=== PATIENT | male | born 1960 ===

== ENCOUNTER 2017-02-19 11:19 | Emergency (ER) | payer MEDICAID, OTHER ==
[2017-02-19 11:19] VITALS: BMI 26.4
[2017-02-19 11:27] VITALS: PULSE 84; TEMP 98.6; O2SAT 98
[2017-02-19] MEDS ORDERED: Sodium Chloride 0.9% 1,000 ML IV STA (11:58)
[2017-02-19 12:52] LABS: BASO % 0.6 % (0.0-2.0); EOS # 0.1 K/uL (0.0-0.7); HEMATOCRIT 48.4 % (35.0-51.0); LYMPH # 1.5 K/uL (1.0-4.3); LYMPH % 18.4 % (20.0-40.0); MEAN CORPUSCULAR HEMOGLOBIN 29.9 pg (27.0-31.0); MEAN CORPUSCULAR HGB CONC 33.2 g/dL (33.0-37.0); MEAN PLATELET VOLUME 9.1 fl (7.2-11.7); MONO # 0.8 K/uL (0.0-0.8); MONO % 9.3 % (0.0-10.0); NEUT # 5.7 K/uL (1.8-7.0); NEUT % 70.7 % (50.0-75.0); RED CELL DISTRIBUTION WIDTH 14.8 % (11.5-14.5); WHITE BLOOD COUNT 8.1 K/uL (4.8-10.8)
[2017-02-19 13:11] LABS: ALB/GLOB RATIO 1.6 (1.0-2.1); ALKALINE PHOSPHATASE 81 U/L (38-126); ALT/SGPT 183 U/L (21-72); AST/SGOT 81 U/L (17-59); BILIRUBIN,TOTAL 1.7 mg/dl (0.2-1.3); BLOOD UREA NITROGEN 14 mg/dl (9-20); CALCIUM 10.2 mg/dL (8.4-10.2); CARBON DIOXIDE 30 mmol/L (22-30); CHLORIDE 103 mmol/L (98-107); GFR AFRICAN-AMERICAN > 60; GLUCOSE,RANDOM 97 mg/dL (75-110); POTASSIUM 4.3 MMOL/L (3.6-5.0); SODIUM 144 mmol/l (132-148); TOTAL PROTEIN 7.7 G/DL (6.3-8.2)
[2017-02-19 13:18] LABS: RBC URINE 3 /hpf (0-3); URINE BILIRUBIN NEGATIVE (NEGATIVE); URINE BLOOD NEGATIVE (NEGATIVE); URINE COLOR YELLOW (YELLOW); URINE GLUCOSE (UA) NEG (Normal); URINE KETONE NEGATIVE (NEGATIVE); URINE LEUKOCYTE ESTERASE NEG Leu/uL (Negative); URINE PROTEIN NEGATIVE (NEGATIVE); URINE UROBILINOGEN 0.2-1.0 mg/dL (0.2-1.0); WBC URINE < 1 /hpf (0-5)
[2017-02-19 13:33] VITALS: BP 126/76; RESP 88
--- NOTE | 2017-02-19 15:17 | CT ---
PROCEDURE: CT abdomen pelvis dated 02/19/2017 HISTORY: Left flank pain. COMPARISON: None. TECHNIQUE: Contiguous axial images of the abdomen and pelvis performed without oral or intravenous contrast. Additional 2 dimensional sagittal and coronal reformats provided. Radiation dose: Total exam DLP = 1065.48 mGy-cm. This CT exam was performed using one or more of the following dose reduction techniques: Automated exposure control, adjustment of the mA and/or kV according to patient size, and/or use of iterative reconstruction technique. FINDINGS: LOWER THORAX: Lung bases clear. No infiltrate effusion or basilar pneumothorax. Heart size within range of normal. No significant pericardial effusion. Small hiatal hernia with wall thickening of the distal esophagus likely due to protrusion of gastric mucosa. Possibility of esophagitis not excluded. LIVER: Liver is mildly enlarged measuring nearly 22 cm in CC dimension. Mild diffuse fatty hepatic infiltration. No obvious hepatic mass or collection seen on this limited noncontrast study. GALLBLADDER AND BILE DUCTS: Gallbladder is physiologically distended. No evidence of intraluminal gallbladder calculi. The PANCREAS: The pancreas appears slightly atrophic and fatty replaced. No obvious pancreatic mass or collection seen on this noncontrast study. SPLEEN: There is a vague at septated appearing the focus of low attenuation posterior superior aspect of the splenic parenchyma measuring approximately 2.1 x 1.9 cm. Rule out complex cyst or hemangioma. Followup interval recommended to assess stability. ADRENALS: There are no adrenal lesions seen. KIDNEYS AND URETERS: The kidneys demonstrate symmetric size. No evidence of nephrolithiasis or hydronephrosis. Questionable tiny exophytic hyperdense focus along the lateral aspect lower pole left kidney. Followup renal ultrasound could be performed for further evaluation and confirmation BLADDER: Urinary bladder is incompletely distended which presumably accounts for thick-walled appearance. Muscular hypertrophy likely contributes. Rule out cystitis or other intrinsic/invasive wall lesion. REPRODUCTIVE: Prostate gland measures approximately 3.7 cm in transverse dimension. Multiple calcified pelvic phleboliths are present. APPENDIX: Normal-appearing partially debris and air filled appendix seen on axial image number [id number]. No periappendiceal inflammatory changes. The BOWEL: Evaluation of the bowel is somewhat limited due to the lack of oral contrast material. . Stomach is incompletely distended which presumably accounts for thick-walled appearance. Gastritis not excluded. Visualized loops of small bowel exhibit normal contour and caliber. No evidence of acute mechanical small bowel obstruction. Moderate amount of stool is seen throughout the colon suggesting mild constipation. There does appear to be a few scattered colonic diverticula along sigmoid colon. No definitive abnormal mural wall thickening. PERITONEUM: Unremarkable. No fluid collection. No free air. Small bilateral fat containing inguinal hernias. Small fat containing umbilical hernia. LYMPH NODES: No evidence of significant lymphadenopathy. VASCULATURE: No evidence of abdominal aortic aneurysm. BONES: Minor multilevel degenerative spondylosis of the lower thoracic and lumbar spine. There is mild levoscoliosis centered in the lower lumbar region. Remaining osseous structures appear grossly unremarkable. OTHER FINDINGS: None. IMPRESSION: Mild hepatomegaly. Mild fatty hepatic infiltration. Complex appearing cystic focus of posterior superior at on margin of the spleen. Rule out meningioma. Followup CT scan at interval could be performed to assess stability. No evidence of nephrolithiasis or hydronephrosis. Questionable small exophytic hyperdense cyst inferior lateral margin left kidney. Followup nonemergent ultrasound could be performed further evaluation. Bilateral small fat containing inguinal hernias and small fat containing umbilical hernia. Findings suggest mild constipation. There appear to be a few scattered colonic diverticula along the sigmoid colon however no definitive radiographic evidence of acute diverticulitis. No evidence of acute appendicitis.
--- NOTE | 2017-02-19 15:33 | ED PDOC ---
HPI: Back Time Seen by Provider: 02/19/17 11:44 Chief Complaint (Nursing): Back Pain Chief Complaint (Provider): Left flank pain x 3 days, no similar in the past, no trauma History Per: Patient History/Exam Limitations: no limitations Onset/Duration Of Symptoms: Days Current Symptoms Are (Timing): Still Present Quality Of Discomfort: Sharp Severity: Severe Pain Scale Rating Of: 9 Previous Symptoms: None Associated Symptoms: None Exacerbating Factor(s): Movement Past Medical History Reviewed: Historical Data, Nursing Documentation, Vital Signs Vital Signs: Last Vital Signs Temp 98.6 F 02/19/17 11:24 Pulse 84 02/19/17 11:24 Resp 88 H 02/19/17 13:33 BP 126/76 02/19/17 13:33 Pulse Ox 98 02/19/17 11:24 - Medical History PMH: - Surgical History Surgical History: No Surg Hx - Family History Family History: States: No Known Family Hx - Living Arrangements Living Arrangements: With Family - Social History Current smoker - smoking cessation education provided: No - Home Medications Home Medications: Ambulatory Orders Medication Instructions Recorded Naproxen 500 mg PO Q12H PRN #20 ect 02/19/17 diaZEpam [Valium] 5 mg PO Q6H PRN #15 tab 02/19/17 - Allergies Allergies/Adverse Reactions: Allergies Allergy/AdvReac Type Severity Reaction Status Date / Time No Known Allergies Allergy Verified 02/19/17 11:24 Review of Systems ROS Statement: Except As Marked, All Systems Reviewed And Found Negative Constitutional: Negative for: Fever, Chills Gastrointestinal: Positive for: Abdominal Pain (Left flank pain ). Negative for : Nausea, Vomiting Physical Exam - Reviewed Nursing Documentation Reviewed: Yes Vital Signs Reviewed: Yes - Physical Exam Appears: Positive for: Well, Non-toxic, No Acute Distress Head Exam: Positive for: ATRAUMATIC, NORMAL INSPECTION, NORMOCEPHALIC Skin: Positive for: Normal Color, Warm, DRY Eye Exam: Positive for: Normal appearance ENT: Positive for: Normal ENT Inspection Neck: Positive for: Normal, Painless ROM Cardiovascular/Chest: Positive for: Regular Rate, Rhythm Respiratory: Positive for: Normal Breath Sounds. Negative for: Accessory Muscle Use, Respiratory Distress Gastrointestinal/Abdominal: Positive for: Normal Exam, Bowel Sounds, Soft. Negative for: Tenderness Back: Positive for: Normal Inspection Extremity: Positive for: Normal ROM Neurologic/Psych: Positive for: Alert, Oriented - Laboratory Results Result Diagrams: 02/19/17 12:45 02/19/17 12:45 - ECG O2 Sat by Pulse Oximetry: 98 Medical Decision Making Medical Decision Making: Pt reports feeling better after medications. CT normal. Labs normal. Disposition - Clinical Impression Clinical Impression: Musculoskeletal back pain - Patient ED Disposition Is Patient to be Admitted: No Counseled Patient/Family Regarding: Diagnosis, Need For Followup, Rx Given - Disposition Disposition: Routine/Home Disposition Time: 15:32 Condition: GOOD Prescriptions: diaZEpam [Valium] 5 mg PO Q6H PRN #15 tab PRN Reason: Pain Naproxen 500 mg PO Q12H PRN #20 ect PRN Reason: Pain, Severe (8-10) Instructions: Back Pain (ED) Forms: [employer] (Greenlandic)
== END 2017-02-19 15:47 | disposition home or self-care (01) ==
LOC: H.ER 11:19
DX: M54.9 Dorsalgia, unspecified (principal); K40.20 Bilateral inguinal hernia, without obstruction or gangrene, not specified as recurrent
CPT/HCPCS: 74176; 80053; 81003; 85025; 87086; 96360; 96361; 99283; J1885; J7040

== ENCOUNTER 2017-09-14 09:42 | Emergency (ER) | payer OTHER ==
[2017-09-14 09:43] VITALS: BMI 26.4
[2017-09-14 09:48] VITALS: RESP 20; TEMP 97.4; O2SAT 98
--- NOTE | 2017-09-14 09:54 | ED PDOC ---
HPI: Abdomen Time Seen by Provider: 09/14/17 09:52 Chief Complaint (Provider): Abdominal and Chest Pain History Per: Patient History/Exam Limitations: clinical condition Onset/Duration Of Symptoms: Days (7-10) Outside of [place] travel?: No Current Symptoms Are (Timing): Still Present Severity: Mild Associated Symptoms: denies: Fever, Chills, Nausea, Vomiting, Diarrhea, Urinary Symptoms Exacerbating Factors: None Alleviating Factors: None Past Medical History Vital Signs: Last Vital Signs Temp 97.4 F L 09/14/17 09:46 Pulse 57 L 09/14/17 14:31 Resp 20 09/14/17 09:46 BP 128/85 09/14/17 10:42 Pulse Ox 98 09/14/17 14:31 - Medical History PMH: - Home Medications Home Medications: Ambulatory Orders Medication Instructions Recorded Naproxen 500 mg PO Q12H PRN #20 ect 02/19/17 diaZEpam [Valium] 5 mg PO Q6H PRN #15 tab 02/19/17 - Allergies Allergies/Adverse Reactions: Allergies Allergy/AdvReac Type Severity Reaction Status Date / Time No Known Allergies Allergy Verified 09/14/17 10:03 Review of Systems Cardiovascular: Positive for: Chest Pain. Negative for: Palpitations, Orthopnea Gastrointestinal: Positive for: Abdominal Pain, Constipation, Hematochezia. Negative for: Melena, Rectal Pain Physical Exam - Physical Exam Appears: Positive for: Well Cardiovascular/Chest: Positive for: Regular Rate, Rhythm, Chest Non Tender, Bradycardia. Negative for: Edema, Friction Rub, Irregularly Irregular Respiratory: Positive for: Normal Breath Sounds. Negative for: Decreased Breath Sounds, Accessory Muscle Use, Crackles, Rales, Stridor, Wheezing, Respiratory Distress, Plerual Rub Pulses-Radial (L): 2+ Gastrointestinal/Abdominal: Positive for: Normal Exam, Bowel Sounds. Negative for: Tenderness, Rebound, Asicites - Laboratory Results Result Diagrams: 09/14/17 10:32 09/14/17 10:32 - ECG ECG: Positive for: Interpreted By Me, Viewed By Me ECG Rhythm: Positive for: Sinus Bradycardia Interpretation Of Abn EKG: Sinus Otf Rate: 57 O2 Sat by Pulse Oximetry: 98 Medical Decision Making Medical Decision Making: R/O cardiac event: pt is sinus otf with hypertension (105 diastolic) R/O acute abdomen: sporadic bloody feces with mild constipation, hemorrhoid> acute abdomen Cardiac Workup CT Abd/Pelvis with contrast PROCEDURE: CT scan abdomen and pelvis dated 09/14/2017 HISTORY: Abdominal pain COMPARISON: Comparison made with prior study 02/19/2017 TECHNIQUE: Contiguous axial images of the abdomen pelvis performed following intravenous injection of approximately 95 cc Omnipaque 300 contrast material. Additional 2 dimensional sagittal and coronal reformats generated. Radiation dose: Total exam DLP = This CT exam was performed using one or more of the following dose reduction techniques: Automated exposure control, adjustment of the mA and/or kV according to patient size, and/or use of iterative reconstruction technique. . FINDINGS: LOWER THORAX: Lung bases are clear. No infiltrate effusion or basilar pneumothorax. There is a tiny hiatal hernia with wall thickening of distal esophagus likely due to protrusion of gastric mucosa. Possibility of esophagitis or other intrinsic/ invasive wall lesion not excluded. LIVER: The liver remains mildly enlarged measuring over 20 cm in CC dimension. Moderate to fairly significant fatty hepatic infiltration. No obvious hepatic mass or collection seen on this noncontrast study. Portal and splenic veins are opacified. GALLBLADDER AND BILE DUCTS: The gallbladder is physiologically distended. No evidence of intraluminal gallbladder calculi. PANCREAS: The pancreas appears slightly atrophic and fatty replaced SPLEEN: Re- demonstrated is a complex apparent septated presume cystic focus posterior superior margin of the spleen which remains relatively stable. The entire size of this lesion measures approximately 2.0 x 1.65 cm ADRENALS: No adrenal lesions KIDNEYS AND URETERS: Kidneys demonstrate symmetric nephrograms. No evidence of nephrolithiasis or hydronephrosis. The. There appears to be at tiny subcentimeter low-attenuation foci arising from the posterior cortex mid pole left kidney and post oral lateral aspect lower pole left kidney likely representing tiny cysts. Followup ultrasound could confirm if necessary. BLADDER: Urinary bladder is physiologically distended. No evidence of intraluminal urinary bladder calculi. REPRODUCTIVE: Prostate gland measures approximately 4.3 cm in transverse dimension. APPENDIX: Normal-appearing appendix again seen on axial image number [id number]. No evidence of periappendiceal inflammatory changes. BOWEL: Evaluation of the bowel is limited due to the lack of oral contrast material. The stomach is incompletely distended which presumably accounts for thick- walled appearance. Gastritis not excluded. Visualized loops of small bowel exhibit normal contour and caliber. No evidence of acute mechanical small bowel obstruction. Few small scattered colonic diverticula. No radiographic evidence of acute diverticulitis. PERITONEUM: Unremarkable. No fluid collection. No free air. Small fat containing umbilical hernia. Small bilateral fat containing inguinal hernias left larger than right. LYMPH NODES: Unremarkable. No enlarged lymph nodes. VASCULATURE: Unremarkable. No aortic aneurysm. Minor partially calcified atherosclerotic plaque seen along the abdominal aorta and proximal iliac arteries. BONES: Mild multilevel degenerative spondylosis of the lower thoracic and lumbar spine. OTHER FINDINGS: None. IMPRESSION: Hepatomegaly with moderate to fairly significant fatty infiltration. No evidence of cholelithiasis. No evidence of acute appendicitis. Few scattered colonic diverticula without radiographic evidence of acute diverticulitis. Disposition - Clinical Impression Clinical Impression: Fatty liver, Diverticulosis Counseled Patient/Family Regarding: Studies Performed, Diagnosis, Need For Followup - Disposition Referrals: James Valente MD [Staff Provider] - Disposition: Routine/Home Disposition Time: 14:46 Condition: GOOD Instructions: Nonalcoholic Fatty Liver Disease (DC)
[2017-09-14 10:43] VITALS: BP 128/85
[2017-09-14 10:49] LABS: BASO % 0.5 % (0.0-2.0); EOS # 0.1 K/uL (0.0-0.7); EOS % 1.7 % (0.0-4.0); HEMOGLOBIN 15.6 g/dL (12.0-18.0); LYMPH # 1.4 K/uL (1.0-4.3); LYMPH % 20.9 % (20.0-40.0); MEAN CELL VOLUME 89.8 fl (80.0-94.0); MEAN CORPUSCULAR HGB CONC 34.5 g/dL (33.0-37.0); MEAN PLATELET VOLUME 9.3 fl (7.2-11.7); MONO # 0.6 K/uL (0.0-0.8); MONO % 8.1 % (0.0-10.0); NEUT # 4.7 K/uL (1.8-7.0); NEUT % 68.8 % (50.0-75.0); NRBC % 0.1 % (0.0-0.0); RBC 5.03 Mil/uL (4.40-5.90); RED CELL DISTRIBUTION WIDTH 14.7 % (11.5-14.5); WHITE BLOOD COUNT 6.9 K/uL (4.8-10.8)
--- NOTE | 2017-09-14 10:52 | RAD ---
HISTORY: CP r/p cardiomegally COMPARISON: 04/10/2016 TECHNIQUE: Chest PA and lateral FINDINGS: LUNGS: No active pulmonary disease. PLEURA: No significant pleural effusion identified. No pneumothorax apparent. CARDIOVASCULAR: Normal. OSSEOUS STRUCTURES: No significant abnormalities. VISUALIZED UPPER ABDOMEN: Normal. OTHER FINDINGS: None. IMPRESSION: No active disease. No interval pathology noted
[2017-09-14 10:56] LABS: ALB/GLOB RATIO 1.5 (1.0-2.1); ALBUMIN 4.4 g/dL (3.5-5.0); BILIRUBIN,DIRECT 0.4 mg/ml (0.0-0.4); CALCIUM 9.7 mg/dL (8.4-10.2); GFR AFRICAN-AMERICAN > 60; GFR NON-AFRICAN AMERICAN > 60
[2017-09-14 10:57] LABS: ALT/SGPT 103 U/L (21-72); AST/SGOT 54 U/L (17-59); BLOOD UREA NITROGEN 12 mg/dl (9-20)
--- NOTE | 2017-09-14 11:01 | CARD ---
APPROVED REPORT EKG Measurement Heart [id number] <Conclusion> Sinus bradycardia Otherwise normal ECG
[2017-09-14 11:02] LABS: SQUAMOUS EPITHIAL < 1 /hpf (0-5); URINE BILIRUBIN NEGATIVE (NEGATIVE); URINE BLOOD NEGATIVE (NEGATIVE); URINE CLARITY CLEAR (Clear); URINE COLOR STRAW (YELLOW); URINE GLUCOSE (UA) NEG (Normal); URINE LEUKOCYTE ESTERASE NEG Leu/uL (Negative); URINE PROTEIN NEGATIVE (NEGATIVE); URINE UROBILINOGEN 0.2-1.0 mg/dL (0.2-1.0)
[2017-09-14 11:10] LABS: B-TYPE NATRIURETIC PEPTIDE 37.2 pg/ml (0-900); CK-MB 0.51 ng/mL (0.0-3.38)
[2017-09-14 11:11] LABS: INR 0.9 (0.9-1.2); PROTHROMBIN TIME 10.4 Seconds (9.8-13.1)
[2017-09-14 11:12] LABS: PARTIAL THROMBOPLASTIN TIME 30.8 Seconds (25.6-37.1)
[2017-09-14] MEDS ORDERED: Iohexol 300 100 ML IJ ONE (12:20)
--- NOTE | 2017-09-14 14:09 | CT ---
PROCEDURE: CT scan abdomen and pelvis dated 09/14/2017 HISTORY: Abdominal pain COMPARISON: Comparison made with prior study 02/19/2017 TECHNIQUE: Contiguous axial images of the abdomen pelvis performed following intravenous injection of approximately 95 cc Omnipaque 300 contrast material. Additional 2 dimensional sagittal and coronal reformats generated. Radiation dose: Total exam DLP = This CT exam was performed using one or more of the following dose reduction techniques: Automated exposure control, adjustment of the mA and/or kV according to patient size, and/or use of iterative reconstruction technique. . FINDINGS: LOWER THORAX: Lung bases are clear. No infiltrate effusion or basilar pneumothorax. There is a tiny hiatal hernia with wall thickening of distal esophagus likely due to protrusion of gastric mucosa. Possibility of esophagitis or other intrinsic/invasive wall lesion not excluded. LIVER: The liver remains mildly enlarged measuring over 20 cm in CC dimension. Moderate to fairly significant fatty hepatic infiltration. No obvious hepatic mass or collection seen on this noncontrast study. Portal and splenic veins are opacified. GALLBLADDER AND BILE DUCTS: The gallbladder is physiologically distended. No evidence of intraluminal gallbladder calculi. PANCREAS: The pancreas appears slightly atrophic and fatty replaced SPLEEN: Re- demonstrated is a complex apparent septated presume cystic focus posterior superior margin of the spleen which remains relatively stable. The entire size of this lesion measures approximately 2.0 x 1.65 cm ADRENALS: No adrenal lesions KIDNEYS AND URETERS: Kidneys demonstrate symmetric nephrograms. No evidence of nephrolithiasis or hydronephrosis. The. There appears to be at tiny subcentimeter low-attenuation foci arising from the posterior cortex mid pole left kidney and post oral lateral aspect lower pole left kidney likely representing tiny cysts. Followup ultrasound could confirm if necessary. BLADDER: Urinary bladder is physiologically distended. No evidence of intraluminal urinary bladder calculi. REPRODUCTIVE: Prostate gland measures approximately 4.3 cm in transverse dimension. APPENDIX: Normal-appearing appendix again seen on axial image number [id number]. No evidence of periappendiceal inflammatory changes. BOWEL: Evaluation of the bowel is limited due to the lack of oral contrast material. The stomach is incompletely distended which presumably accounts for thick-walled appearance. Gastritis not excluded. Visualized loops of small bowel exhibit normal contour and caliber. No evidence of acute mechanical small bowel obstruction. Few small scattered colonic diverticula. No radiographic evidence of acute diverticulitis. PERITONEUM: Unremarkable. No fluid collection. No free air. Small fat containing umbilical hernia. Small bilateral fat containing inguinal hernias left larger than right. LYMPH NODES: Unremarkable. No enlarged lymph nodes. VASCULATURE: Unremarkable. No aortic aneurysm. Minor partially calcified atherosclerotic plaque seen along the abdominal aorta and proximal iliac arteries. BONES: Mild multilevel degenerative spondylosis of the lower thoracic and lumbar spine. OTHER FINDINGS: None. IMPRESSION: Hepatomegaly with moderate to fairly significant fatty infiltration. No evidence of cholelithiasis. No evidence of acute appendicitis. Few scattered colonic diverticula without radiographic evidence of acute diverticulitis.
[2017-09-14 14:31] VITALS: PULSE 57
== END 2017-09-14 15:25 | disposition home or self-care (01) ==
LOC: H.ER 09:42
DX: K57.30 Diverticulosis of large intestine without perforation or abscess without bleeding (principal); K76.0 Fatty (change of) liver, not elsewhere classified
CPT/HCPCS: 71046; 74177; 80053; 81003; 82248; 82553; 83880; 84484; 85025; 85610; 85730; 93005; 99284; G0328; Q9967

== ENCOUNTER 2018-01-19 08:49 | Emergency (ER) | payer OTHER ==
[2018-01-19 08:52] VITALS: BP 146/99; PULSE 75; TEMP 97; O2SAT 96; BMI 27.3
[2018-01-19] MEDS ORDERED: Lidocaine 1% Inj (20ml) IJ ONE (09:57)
--- NOTE | 2018-01-19 10:06 | ED PDOC ---
HPI: Male Pain Time Seen by Provider: 01/19/18 09:20 Chief Complaint (Nursing): Abnormal Skin Integrity Chief Complaint (Provider): Abnormal Skin Integrity History Per: Patient History/Exam Limitations: no limitations Onset/Duration Of Symptoms: Days (x7) Current Symptoms Are (Timing): Still Present Additional Complaint(s): 57 y/o male with no significant PMHx presents to the ED after noticing a pain in two sites of his buttocks, onset 7 days ago. Patient states his left inner buttock had been draining and stopped for a few days. Patient reports he has had a pilonidal abscess before. Patient additionally complains of a lesion on his right buttock that started yesterday that also hurts but not as much as the other one. Denies fever and vomiting. PMD: Brian Cheney Past Medical History Reviewed: Historical Data, Nursing Documentation, Vital Signs Vital Signs: Last Vital Signs Temp 97 F L 01/19/18 08:51 Pulse 75 01/19/18 08:51 Resp BP 146/99 H 01/19/18 08:51 Pulse Ox 96 01/19/18 08:51 - Medical History PMH: No Chronic Diseases - Surgical History Other surgeries: Ankle surgery - Family History Family History: States: Unknown Family Hx - Social History Current smoker - smoking cessation education provided: No Alcohol: None Drugs: Denies - Home Medications Home Medications: Ambulatory Orders Medication Instructions Recorded Naproxen 500 mg PO Q12H PRN #20 ect 02/19/17 diaZEpam [Valium] 5 mg PO Q6H PRN #15 tab 02/19/17 Cephalexin [Keflex] 500 mg PO QID #28 capsule 01/19/18 Ibuprofen [Motrin] 600 mg PO Q6H PRN #20 tab 01/19/18 Sulfamethoxazole/Trimethoprim 1 tab PO BID #14 tab 01/19/18 [Bactrim DS 800 mg-160 mg] - Allergies Allergies/Adverse Reactions: Allergies Allergy/AdvReac Type Severity Reaction Status Date / Time No Known Allergies Allergy Verified 09/14/17 10:03 Review of Systems ROS Statement: Except As Marked, All Systems Reviewed And Found Negative Constitutional: Negative for: Fever Gastrointestinal: Negative for: Vomiting Genitourinary Male: Positive for: Other (Buttock Pain) Physical Exam - Reviewed Nursing Documentation Reviewed: Yes Vital Signs Reviewed: Yes - Physical Exam Appears: Positive for: Well, Non-toxic, No Acute Distress Skin: Positive for: Normal Color, Warm, Dry Eye Exam: Positive for: Normal appearance Rectal: Negative for: Normal Exam (4 cm abscess that has been draining previously but currently not draining on the left inner buttock-with some fluctuance but no surrounding cellulitis that is tender to palpation; small External hemorrhoid on the right buttock) Extremity: Positive for: Normal ROM Neurologic/Psych: Positive for: Alert, Oriented - ECG O2 Sat by Pulse Oximetry: 96 (RA) Pulse Ox Interpretation: Normal Medical Decision Making Medical Decision Making: Time: 956 Plan: abscess on left buttock, right ext. hemoroid -- Lidocaine 1% (20 ml) 5 ml IJ -- Motrin 600 mg PO -- Incision and Drainage procedure to be performed by me on the right buttock abscess. see procedure note. Time: 1042 -- Patient is advised to return in 48 hours for packing removal and wound check. Patient to be discharged with Keflex, Motrin, and Bactrim. also advised on warm compresses. -- Advised to take medication as prescribed. Return to the emergency room at any time for any new or worsening symptoms. -- Patient states he fully agrees with and understands discharge instructions. States that he agrees with the plan and disposition. Verbalized and repeated discharge instructions and plan. I have given the patient opportunity to ask any additional questions. Scribe Attestation: Documented by Cynthia Dye acting as a scribe for Dr. Mellisa Santana MD. Provider Scribe Attestation: All medical record entries made by the Scribe were at my direction and personally dictated by me. I have reviewed the chart and agree that the record accurately reflects my personal performance of the history, physical exam, medical decision making, and the department course for this patient. I have also personally directed, reviewed, and agree with the discharge instructions and disposition. Procedures - Incision and Drainage Site: Right Inner Buttock Abscess Blade Size: 11 I & D Procedure: betadine prep Progress: -pt provided verbal consent to procedure for I and D to relieve some of the pus from the site. time out done. - Approximately 5 CCs of 1% Lidocaine was used. Betadine prep was used to clean the area. -- Provider drained approximately 4 CCs of purulent fluid mixed with blood. -- After draining process, area was packed w about2 inches of packing material, wound covered. no complications. Disposition - Clinical Impression Clinical Impression: Abscess - Patient ED Disposition Is Patient to be Admitted: No Counseled Patient/Family Regarding: Studies Performed, Diagnosis, Need For Followup - Disposition Disposition: Routine/Home Disposition Time: 10:35 Condition: IMPROVED Additional Instructions: follow up in 48 hours in ER for packing removal and wound check return to the ED with any worsening or concerning symptoms Prescriptions: Cephalexin [Keflex] 500 mg PO QID #28 capsule Ibuprofen [Motrin] 600 mg PO Q6H PRN #20 tab PRN Reason: Pain, Moderate (4-7) Sulfamethoxazole/Trimethoprim [Bactrim DS 800 mg-160 mg] 1 tab PO BID #14 tab Instructions: Boil (DC), Abscess Incision and Drainage (DC) Forms: [employer] (Tongan)
== END 2018-01-19 11:24 | disposition home or self-care (01) ==
LOC: H.ER 08:49
DX: L02.31 Cutaneous abscess of buttock (principal)

== ENCOUNTER 2018-01-21 09:32 | Emergency (ER) | payer OTHER ==
[2018-01-21 09:38] VITALS: TEMP 97.8; O2SAT 98
--- NOTE | 2018-01-21 09:47 | ED PDOC ---
HPI: Wound Care - HPI Time Seen by Provider: 01/21/18 09:40 History Per: Patient Additional Complaint(s): S/p I&D abscess lefft buttock 2 days ago. For wound check. Denies fever or pain or drainage Past Medical History Vital Signs: Last Vital Signs Temp 97.8 F 01/21/18 09:37 Pulse 69 01/21/18 09:37 Resp 16 01/21/18 09:37 BP 132/92 H 01/21/18 09:37 Pulse Ox 98 01/21/18 09:37 - Medical History PMH: No Chronic Diseases - Family History Family History: States: Unknown Family Hx - Home Medications Home Medications: Ambulatory Orders Medication Instructions Recorded Naproxen 500 mg PO Q12H PRN #20 ect 02/19/17 diaZEpam [Valium] 5 mg PO Q6H PRN #15 tab 02/19/17 Cephalexin [Keflex] 500 mg PO QID #28 capsule 01/19/18 Ibuprofen [Motrin] 600 mg PO Q6H PRN #20 tab 01/19/18 Sulfamethoxazole/Trimethoprim 1 tab PO BID #14 tab 01/19/18 [Bactrim DS 800 mg-160 mg] - Allergies Allergies/Adverse Reactions: Allergies Allergy/AdvReac Type Severity Reaction Status Date / Time No Known Allergies Allergy Verified 01/21/18 09:44 Review of Systems Constitutional: Negative for: Fever Skin: Negative for: Rash Physical Exam - Physical Exam Appears: Positive for: Non-toxic, No Acute Distress Rectal: Positive for: Other (Wound healing, packing fell out. No erythema or drainage) - ECG O2 Sat by Pulse Oximetry: 98 Disposition - Clinical Impression Clinical Impression: Encounter for wound care - Patient ED Disposition Is Patient to be Admitted: No Counseled Patient/Family Regarding: Diagnosis, Need For Followup - Disposition Referrals: [facility] [Outside] Disposition: Routine/Home Disposition Time: 09:47 Condition: FAIR Instructions: Wound Care
[2018-01-21 09:51] VITALS: BP 130/88; PULSE 72; RESP 18
== END 2018-01-21 10:03 | disposition home or self-care (01) ==
LOC: H.ER 09:32
DX: Z48.01 Encounter for change or removal of surgical wound dressing (principal)

== ENCOUNTER 2018-01-31 09:33 | Emergency (ER) | payer OTHER ==
[2018-01-31 09:36] VITALS: BMI 27.1
[2018-01-31] MEDS ORDERED: Sodium Chloride 0.9% 1,000 ML IV STA (10:22)
[2018-01-31] MEDS ORDERED: Iohexol 240 (50 ml) PO ONE (10:22)
--- NOTE | 2018-01-31 10:26 | ED PDOC ---
HPI: Abdomen Time Seen by Provider: 01/31/18 09:50 Chief Complaint (Provider): Abd pain History Per: Patient History/Exam Limitations: no limitations Onset/Duration Of Symptoms: Days Additional Complaint(s): Abd pain R lower abd pain. No nausea, vomit, diarrhea, weakness, headaches, dizziness, chest pain, back pain. No fever. No dysuria. No testicular pain. Past Medical History Reviewed: Nursing Documentation, Vital Signs Vital Signs: Last Vital Signs Temp 97.8 F 01/31/18 09:36 Pulse 81 01/31/18 09:36 Resp 16 01/31/18 09:36 BP 128/88 01/31/18 09:36 Pulse Ox 97 01/31/18 10:27 - Medical History PMH: No Chronic Diseases - Surgical History Other surgeries: foot surgery - Family History Family History: States: Unknown Family Hx - Living Arrangements Living Arrangements: With Family - Home Medications Home Medications: Ambulatory Orders Medication Instructions Recorded Naproxen 500 mg PO Q12H PRN #20 ect 02/19/17 diaZEpam [Valium] 5 mg PO Q6H PRN #15 tab 02/19/17 Cephalexin [Keflex] 500 mg PO QID #28 capsule 01/19/18 Ibuprofen [Motrin] 600 mg PO Q6H PRN #20 tab 01/19/18 Sulfamethoxazole/Trimethoprim 1 tab PO BID #14 tab 01/19/18 [Bactrim DS 800 mg-160 mg] Cefpodoxime [Vantin] 100 mg PO BID 7 Days tab 01/31/18 Ibuprofen [Motrin] 600 mg PO TID 7 Days tab 01/31/18 Metronidazole [Flagyl] 500 mg PO TID 7 Days tablet 01/31/18 - Allergies Allergies/Adverse Reactions: Allergies Allergy/AdvReac Type Severity Reaction Status Date / Time No Known Allergies Allergy Verified 01/21/18 09:44 Review of Systems ROS Statement: Except As Marked, All Systems Reviewed And Found Negative Gastrointestinal: Positive for: Abdominal Pain Physical Exam - Reviewed Nursing Documentation Reviewed: Yes Vital Signs Reviewed: Yes - Physical Exam Appears: Positive for: Non-toxic, No Acute Distress Head Exam: Positive for: ATRAUMATIC, NORMAL INSPECTION, NORMOCEPHALIC Skin: Positive for: Normal Color, Warm, DRY Eye Exam: Positive for: EOMI, Normal appearance, PERRL ENT: Positive for: Normal ENT Inspection Neck: Positive for: Normal, Painless ROM Cardiovascular/Chest: Positive for: Regular Rate, Rhythm Respiratory: Positive for: CNT, Normal Breath Sounds Gastrointestinal/Abdominal: Positive for: Soft, Tenderness (mild at inguinal region left; no gross hernia palpated) Back: Positive for: Normal Inspection. Negative for: L CVA Tenderness, R CVA Tenderness Extremity: Positive for: Normal ROM Neurologic/Psych: Positive for: Alert, Oriented - Laboratory Results Result Diagrams: 01/31/18 10:54 01/31/18 10:54 Interpretation Of Abn Labs: mild elevated liver enzymes Urine dip results: Negative for: Leukocyte Esterase, Blood, Nitrate - ECG O2 Sat by Pulse Oximetry: 97 Pulse Ox Interpretation: Normal - CT Scan/US ct Other Rad Studies (CT/US): Read By Radiologist Other Rad Interpretation: colitis? - Progress ED Course And Treament: 1531: Stable. AAOx3. Pain free. Tolerated PO. Fu with gi. Disposition - Clinical Impression Clinical Impression: Colitis, Elevated liver enzymes - Patient ED Disposition Is Patient to be Admitted: No Counseled Patient/Family Regarding: Studies Performed, Diagnosis, Need For Followup - Disposition Referrals: [facility] [Outside] - 02/02/18 Halle Donovan MD [Medical Doctor] - 02/02/18 Disposition: Routine/Home Disposition Time: 15:32 Condition: STABLE Additional Instructions: Return if not better in 3 days. See the specialist as your have elevated liver enzymes. Prescriptions: Cefpodoxime [Vantin] 100 mg PO BID 7 Days tab Ibuprofen [Motrin] 600 mg PO TID 7 Days tab Metronidazole [Flagyl] 500 mg PO TID 7 Days tablet Instructions: Acute Abdomen (Belly Pain) Forms: [employer] (Croatian)
[2018-01-31 11:04] LABS: BASO % 0.4 % (0.0-2.0); EOS # 0.1 K/uL (0.0-0.7); EOS % 1.8 % (0.0-4.0); HEMOGLOBIN 15.4 g/dL (12.0-18.0); LYMPH # 1.3 K/uL (1.0-4.3); LYMPH % 20.3 % (20.0-40.0); MEAN CELL VOLUME 90.4 fl (80.0-94.0); MEAN CORPUSCULAR HEMOGLOBIN 31.1 pg (27.0-31.0); MEAN CORPUSCULAR HGB CONC 34.4 g/dL (33.0-37.0); MEAN PLATELET VOLUME 9.1 fl (7.2-11.7); MONO # 0.5 K/uL (0.0-0.8); MONO % 8.2 % (0.0-10.0); NEUT # 4.5 K/uL (1.8-7.0); NEUT % 69.3 % (50.0-75.0); NRBC % 0.1 % (0.0-0.0); RBC 4.95 Mil/uL (4.40-5.90); RED CELL DISTRIBUTION WIDTH 14.6 % (11.5-14.5); WHITE BLOOD COUNT 6.5 K/uL (4.8-10.8)
[2018-01-31 11:07] LABS: ALB/GLOB RATIO 1.6 (1.0-2.1); ALBUMIN 4.4 g/dL (3.5-5.0); ALT/SGPT 84 U/L (21-72); AST/SGOT 35 U/L (17-59); BLOOD UREA NITROGEN 14 mg/dl (9-20); CALCIUM 9.8 mg/dL (8.4-10.2); GFR AFRICAN-AMERICAN > 60; GFR NON-AFRICAN AMERICAN > 60
[2018-01-31] MEDS ORDERED: Iohexol 240 (50 ml) ONE (11:41)
[2018-01-31] MEDS ORDERED: Sodium Chloride 0.9% 50 ML IV ONE (14:41)
[2018-01-31] MEDS ORDERED: Iohexol 300 100 ML IJ ONE (14:41)
--- NOTE | 2018-01-31 15:29 | CT ---
Date of service: 01/31/2018 PROCEDURE: CT Abdomen and Pelvis with contrast HISTORY: abd pain COMPARISON: Abdomen pelvis CT with contrast 09/14/2017. TECHNIQUE: Following oral and intravenous contrast administration, a CT examination of the abdomen and pelvis performed from the domes of the diaphragms to the symphysis pubis with reformatted datasets provided not only axial but also sagittal and coronal series. Contrast dose: Omnipaque 300, 95 cc Radiation dose: Total exam DLP = 669.62 mGy-cm. This CT exam was performed using one or more of the following dose reduction techniques: Automated exposure control, adjustment of the mA and/or kV according to patient size, and/or use of iterative reconstruction technique. FINDINGS: LOWER THORAX: No pleural pericardial effusion. There is a very small hiatal hernia identified adjacent to a small solitary lymph node measure 1.5 x 0.7 cm. LIVER: Liver is diffusely diminished in attenuation fibroid diffuse fatty infiltration. There is a a stable tiny lucency seen the right lobe posteriorly, remaining too small to characterize. No intrahepatic biliary dilatation appreciable. GALLBLADDER AND BILE DUCTS: Gallbladder appears moderately distended but without radiodense cholelithiasis and no overt CT sign of extrahepatic biliary dilatation. PANCREAS: Unremarkable. No gross lesion or ductal dilatation. SPLEEN: Two small lucencies are seen stable at the upper portion of the spleen with remainder the spleen unremarkable. ADRENALS: Unremarkable. No mass. KIDNEYS AND URETERS: Right kidney appears unremarkable a tiny lucency seen in the posterior mid pole left kidney once again, stable. No obstructive uropathy bilaterally or perinephric reaction. VASCULATURE: Unremarkable. No aortic aneurysm. BOWEL: The stomach is collapsed and unopacified and is poorly evaluated. No bowel obstruction identified. The distal large bowel is collapsed and is poorly evaluated as result. Mural thickening is not favored but is difficult to completely exclude given collapsed. No pericolic reaction or fluid collection is appreciated. Infrequent scattered colonic diverticular are again identified at the left hemicolon. APPENDIX: Normal appendix. PERITONEUM: Unremarkable. No free fluid. No free air. A small left inguinal hernia is reiterated developing. LYMPH NODES: Unremarkable. No enlarged lymph nodes. BLADDER: The urinary bladder is partially decompressed without overt or focal mural thickening appreciated. REPRODUCTIVE: Unremarkable. BONES: No acute fracture. OTHER FINDINGS: None. IMPRESSION: 1. Scattered left colonic diverticular seen. The distal large bowel is collapsed limiting evaluation of the wall with mural thickening difficult to completely exclude. No apparent colic reactive change or fluid collection. Segmental colitis is not favored but difficult to fully exclude here. 2. Reiteration of hepatic steatosis as well as nonspecific small lucency too small to characterize right lobe. 3. Stable splenic lucencies.
[2018-01-31 16:04] VITALS: BP 138/79; PULSE 72; RESP 18; TEMP 98.2; O2SAT 98
== END 2018-01-31 16:05 | disposition home or self-care (01) ==
LOC: H.ER 09:33
DX: K76.0 Fatty (change of) liver, not elsewhere classified (principal); K52.9 Noninfective gastroenteritis and colitis, unspecified
CPT/HCPCS: 74177; 80053; 85025; 96374; 99283; J1885; J7030; Q9966; Q9967

== ENCOUNTER 2018-08-24 08:31 | Observation (INO) | payer OTHER ==
[2018-08-24 08:31] VITALS: BMI 27.1
--- NOTE | 2018-08-24 09:30 | ED PDOC ---
HPI: Chest Pain Time Seen by Provider: 08/24/18 09:03 Chief Complaint (Nursing): Chest Pain Chief Complaint (Provider): Chest pain History Per: Patient History/Exam Limitations: no limitations Current Symptoms Are (Timing): Still Present Quality: Dull Additional History Per: Patient Additional Complaint(s): 58yo male with no known past medical history, comes to ER reporting cough x 3 days, and chest pain since last night. Patient also reports shortness of breath while laying flat. He took Tyelnol at home with no relief of symptoms. Otherwis e, no fever, chills, vomiting, weakness, or leg swelling. No additional complaints. PMD: Dr. So Past Medical History Reviewed: Historical Data, Nursing Documentation, Vital Signs Vital Signs: Last Vital Signs Temp 98 F 08/24/18 08:46 Pulse 62 08/24/18 08:53 Resp 18 08/24/18 08:46 BP 149/103 H 08/24/18 08:46 Pulse Ox 98 08/24/18 08:46 - Medical History PMH: HTN - Surgical History Other surgeries: foot surgery - Family History Family History: States: No Known Family Hx - Social History Current smoker - smoking cessation education provided: No Ex-Smoker (has not smoked in the last 12 months): Yes - Allergies Allergies/Adverse Reactions: Allergies Allergy/AdvReac Type Severity Reaction Status Date / Time No Known Allergies Allergy Verified 01/21/18 09:44 TEODORA Risk Score for UA/NSTEMI - TEODORA Risk Score Age > 64: NO 3 or more CAD Risk Factors: NO Known CAD (Stenosis greater than 50%): NO Aspirin use in past 7 days: NO Severe Angina: YES EKG ST changes greater than 0.5mm: NO Positive Cardiac Marker: NO TEODORA Score: 1 Risk %: 5% Wells Criteria for PE - Wells Criteria for Pulmonary Embolism Clinical Signs and Symptoms of DVT: No P.E is #1 Diagnosis, or Equally Likely: No Heart Rate >100: No Immobilization at least 3 days;Surgery previous 4 weeks: No Previous, objectively diagnosed PE or DVT: No Hemoptysis: No Malignancy w/treatment within 6 months, or palliative: No Total Score: 0 Review of Systems ROS Statement: Except As Marked, All Systems Reviewed And Found Negative Constitutional: Negative for: Fever, Chills Cardiovascular: Positive for: Chest Pain Respiratory: Positive for: Cough, Shortness of Breath Gastrointestinal: Negative for: Vomiting, Abdominal Pain Physical Exam - Reviewed Nursing Documentation Reviewed: Yes Vital Signs Reviewed: Yes - Physical Exam Appears: Positive for: Non-toxic, No Acute Distress Head Exam: Positive for: ATRAUMATIC Skin: Positive for: Normal Color, Warm Eye Exam: Positive for: Normal appearance, EOMI, PERRL ENT: Negative for: Pharyngeal Erythema Neck: Positive for: Normal, Supple Cardiovascular/Chest: Positive for: Regular Rate, Rhythm. Negative for: Chest Non Tender (minimal left lateral chest wall tenderness), Murmur, Tachycardia Respiratory: Positive for: Normal Breath Sounds. Negative for: Wheezing, Respiratory Distress Pulses-Radial (L): 2+ Pulses-Radial (R): 2+ Gastrointestinal/Abdominal: Positive for: Normal Exam, Soft. Negative for: Te nderness, Guarding, Rebound Back: Positive for: Normal Inspection. Negative for: L CVA Tenderness, R CVA Tenderness Extremity: Positive for: Normal ROM. Negative for: Pedal Edema Neurologic/Psych: Positive for: Alert, Oriented. Negative for: Motor/Sensory Deficits - Laboratory Results Result Diagrams: 08/24/18 09:15 08/24/18 09:15 - ECG ECG: Positive for: Interpreted By Me, Viewed By Me ECG Rhythm: Positive for: Normal QRS, Normal ST Segment, Sinus Rhythm. Negative for: ST/T Changes Rate: 62 O2 Sat by Pulse Oximetry: 98 (RA) Pulse Ox Interpretation: Normal Medical Decision Making Medical Decision Making: Impression: Chest pain, cough r/o ACS, unstable angina, NSTEMI, pulmonary embolism, thoracic aortic dissection Plan: -- Labs -- EKG -- CXR -- Aspirin 325mg PO -- NTG 0.4mg SL 1002 Labs reviewed, no clinically significant abnormalities; troponin < 0.012, BNP 35 .6 Patient pending DDimer Call placed to Dr. Salcedo, hospitalist cigarette carton sealer [address] Salcedo, patient to be admitted for observation. Plan of care discussed with patient, who is agreeable. 1046 DDimer results reviewed, less than 200. Scribe Attestation: Documented by Sarahy Gonsalves acting as a scribe for Phillip Jarrett MD Provider Attestation: All medical record entries made by the Scribe were at my direction and personally dictated by me. I have reviewed the chart and agree that the record accurately reflects my personal performance of the history, physical exam, medical decision making, and the department course for this patient. I have also personally directed, reviewed, and agree with the discharge instructions and disposition. Disposition - Clinical Impression Clinical Impression: Chest pain - Patient ED Disposition Is Patient to be Admitted: Yes Discussed With DrKatlyn: Nayeli Salcedo Doctor Will See Patient In The: ED Counseled Patient/Family Regarding: Studies Performed, Diagnosis - Disposition Disposition Time: 10:07 Condition: FAIR - Pt Status Changed To: Hospital Disposition Of: Observation - POA Present On Arrival: None
[2018-08-24 09:34] LABS: BASO % 0.3 % (0.0-2.0); EOS # 0.1 K/uL (0.0-0.7); EOS % 1.6 % (0.0-4.0); HEMOGLOBIN 15.5 g/dL (12.0-18.0); LYMPH # 1.4 K/uL (1.0-4.3); LYMPH % 23.6 % (20.0-40.0); MEAN CELL VOLUME 90.7 fl (80.0-94.0); MEAN CORPUSCULAR HEMOGLOBIN 30.4 pg (27.0-31.0); MEAN CORPUSCULAR HGB CONC 33.6 g/dL (33.0-37.0); MEAN PLATELET VOLUME 9.5 fl (7.2-11.7); MONO # 0.6 K/uL (0.0-0.8); NEUT # 3.9 K/uL (1.8-7.0); NEUT % 64.5 % (50.0-75.0); NRBC % 0.1 % (0.0-0.0); RBC 5.09 Mil/uL (4.40-5.90); RED CELL DISTRIBUTION WIDTH 14.1 % (11.5-14.5); WHITE BLOOD COUNT 6.1 K/uL (4.8-10.8)
[2018-08-24 09:42] LABS: PROTHROMBIN TIME 10.9 Seconds (9.8-13.1)
[2018-08-24 09:43] LABS: BLOOD UREA NITROGEN 15 mg/dl (9-20); CALCIUM 10.1 mg/dL (8.4-10.2); GFR NON-AFRICAN AMERICAN > 60
[2018-08-24 09:45] LABS: PARTIAL THROMBOPLASTIN TIME 32.7 Seconds (25.6-37.1)
[2018-08-24 09:55] LABS: B-TYPE NATRIURETIC PEPTIDE 35.6 pg/ml (0-900)
[2018-08-24 10:40] LABS: D DIMER < 200 ng/mlDDU (0-230)
--- NOTE | 2018-08-24 11:08 | CP.PCM.HP ---
<Kristyn Calderon - Last Filed: 08/24/18 13:34> History of Present Illness - History of Present Illness History of Present Illness: Pt is a 58 yo M with no pmhx here due to a constant pressure like squeezing L sided chest pain for 2 days prior to admission radiates to L arm, tried 2 Tylenol without relief. Reports pain is progressive, was previously intermittent has been constant since last night. He was lying down in bed trying to fall asleep when it started. Reports SOB, orthopnea, heartburn every day for the last few months, takes tums daily. Denies diaphoresis, fevers, chills, nausea, vomiting, diarrhea, constipation or dysuria. PMD: Dr. Brian Cheney Pharmacy: [facility] ([address] [place] [address]) PMHx: None Meds: Tums Allergies:NKDA FH: Parents HTN, Father Lung Cancer Surg Hx: Foot surgery 2016 Social Hx: Former smoker 1/2ppd 39 years- quit 3 years ago, Drinks 1-2 beers/day for 39 years, denies drug use, Occupation- Nurse Office Present on Admission - Present on Admission Any Indicators Present on Admission: No History of DVT/PE: No History of Uncontrolled Diabetes: No Urinary Catheter: No Decubitus Ulcer Present: No Review of Systems - Cardiovascular Cardiovascular: Chest Pain, Chest Pain at Rest, Dyspnea, Orthopnea. absent: Pedal Edema - Respiratory Respiratory: Dyspnea - Gastrointestinal Gastrointestinal: Heartburn - Musculoskeletal Musculoskeletal: Radiating Pain into Limb (L arm) Past Patient History - Past Medical History & Family History Past Medical History?: No - Past Social History Smoking Status: Former Smoker Occupation: [place] Alcohol: < 2 Drinks/Day (39 year hx) Drugs: Denies - CARDIAC Hx Hypertension: Yes - MUSCULOSKELETAL/RHEUMATOLOGICAL Hx Falls: Yes - PSYCHIATRIC Hx Emotional Abuse: No Hx Physical Abuse: No Hx Substance Use: No - SURGICAL HISTORY Hx Surgeries: Yes Other/Comment: left heel surgery - ANESTHESIA Hx Anesthesia: Yes Hx Anesthesia Reactions: No Meds Allergies/Adverse Reactions: Allergies Allergy/AdvReac Type Severity Reaction Status Date / Time No Known Allergies Allergy Verified 01/21/18 09:44 Physical Exam - Constitutional Appears: Non-toxic, No Acute Distress - Head Exam Head Exam: ATRAUMATIC, NORMAL INSPECTION, NORMOCEPHALIC - Eye Exam Eye Exam: EOMI - ENT Exam ENT Exam: Mucous Membranes Moist - Respiratory Exam Respiratory Exam: Chest Wall Tenderness (Mild tenderness to palpation of L chest), Clear to Auscultation Bilateral, NORMAL BREATHING PATTERN. absent: Rales, Rhonchi, Wheezes - Cardiovascular Exam Cardiovascular Exam: RRR, +S1, +S2 - GI/Abdominal Exam GI & Abdominal Exam: Normal Bowel Sounds, Soft. absent: Tenderness - Extremities Exam Extremities exam: Positive for: normal inspection. Negative for: pedal edema - Neurological Exam Neurological exam: Alert, Oriented x3 Results - Vital Signs Recent Vital Signs: Last Vital Signs Temp 98 F 08/24/18 08:46 Pulse 62 08/24/18 10:47 Resp 18 08/24/18 08:46 BP 149/103 H 08/24/18 08:46 Pulse Ox 98 08/24/18 10:47 - Labs Result Diagrams: 08/24/18 09:15 08/24/18 09:15 Labs: Laboratory Results - last 24 hr 08/24/18 08/24/18 08/24/18 09:15 09:15 09:15 WBC 6.1 RBC 5.09 Hgb 15.5 Hct 46.2 MCV 90.7 MCH 30.4 MCHC 33.6 RDW 14.1 Plt Count 234 MPV 9.5 Neut % (Auto) 64.5 Lymph % (Auto) 23.6 [place] % (Auto) 10.0 Eos % (Auto) 1.6 Baso % (Auto) 0.3 Neut # (Auto) 3.9 Lymph # (Auto) 1.4 [place] # (Auto) 0.6 Eos # (Auto) 0.1 Baso # (Auto) 0.0 PT 10.9 INR 1.0 APTT 32.7 D-Dimer, Quantitative < 200 Sodium 140 Potassium 4.7 Chloride 100 Carbon Dioxide 29 Anion Gap 16 BUN 15 Creatinine 0.8 Est GFR ( Amer) > 60 Est GFR (Non-Af Amer) > 60 Random Glucose 102 Calcium 10.1 Troponin I < 0.0120 NT-Pro-B Natriuret Pep 35.6 Assessment & Plan - Assessment and Plan (Free Text) Assessment: Pt is a 58 yo M with no pmhx admitted for a constant pressure like squeezing L sided chest pain for 2 days Chest pain r/o ACS vs Unstable Angina ASA 325 and Nitro SL in ED Admit to tele for obs EKG-No acute change, no ST changes CBC, CMP, Coags, D dimer CXR- no active cardio/pulm dz Tropinin x1 normal, Troponins x 2(Q6h) Tylenol pain F/u troponins x2, cbc, cmp, lipid panel, TSH, Free T4 in AM Continue to monitor on tele GERD Protonix 20mg QD Diet Heart healthy DVT PPX Lovenox 40mg Code Status Full code Case reveiwed and discussed with Dr. Matias Calderon PGY1 - Date & Time Date: 08/24/18 Time: 11:08 <Nayeli Salcedo - Last Filed: 08/27/18 15:30> Results - Vital Signs Recent Vital Signs: Last Vital Signs Temp 97.2 F L 08/25/18 09:00 Pulse 66 08/25/18 09:00 Resp 18 08/25/18 09:00 BP 123/80 08/25/18 09:00 Pulse Ox 99 08/25/18 09:00 - Labs Result Diagrams: 08/25/18 04:10 08/25/18 04:10 Attending/Attestation - Attestation I have personally seen and examined this patient.: Yes I have fully participated in the care of the patient.: Yes I have reviewed all pertinent clinical information: Yes Notes (Text): 08/27/18 15:30 Agree with findings and plan as above.
--- NOTE | 2018-08-24 12:43 | RAD ---
Date of service: 08/24/2018 PROCEDURE: CHEST RADIOGRAPH, 1 VIEW HISTORY: chest pain COMPARISON: 09/14/2017. FINDINGS: LUNGS: Clear. PLEURA: No pneumothorax or pleural fluid seen. CARDIOVASCULAR: No aortic atherosclerotic calcification present. Normal. OSSEOUS STRUCTURES: No significant abnormalities. VISUALIZED UPPER ABDOMEN: Normal. OTHER FINDINGS: None. IMPRESSION: No active disease. No acute/significant interval changes.
[2018-08-24] MEDS ORDERED: Influenza Vaccine 60 MCG/0.5 ML SYR (3 yr & up) IM ONE (13:53)
[2018-08-24] MEDS ORDERED: Pneumococcal 23-Valent Vaccine IM ONE (13:53)
[2018-08-24] MEDS ORDERED: Influenza Vaccine 60 mcg/0.5 mL SYR (4YR UP) IM ONE (14:15)
[2018-08-24] MEDS: Pantoprazole 20 mg EC Tab PO SCH (15:30)
--- NOTE | 2018-08-24 21:54 | CARD ---
APPROVED REPORT Date of service: 08/24/2018 EKG Measurement Heart [id number] <Conclusion> Normal sinus rhythm Normal ECG
[2018-08-25 05:11] LABS: BASO % 0.4 % (0.0-2.0); EOS # 0.1 K/uL (0.0-0.7); EOS % 1.4 % (0.0-4.0); HEMOGLOBIN 15.2 g/dL (12.0-18.0); LYMPH # 1.5 K/uL (1.0-4.3); LYMPH % 17.2 % (20.0-40.0); MEAN CORPUSCULAR HEMOGLOBIN 30.2 pg (27.0-31.0); MEAN CORPUSCULAR HGB CONC 33.2 g/dL (33.0-37.0); MEAN PLATELET VOLUME 9.8 fl (7.2-11.7); MONO # 0.7 K/uL (0.0-0.8); MONO % 7.7 % (0.0-10.0); NEUT # 6.5 K/uL (1.8-7.0); NEUT % 73.3 % (50.0-75.0); RBC 5.04 Mil/uL (4.40-5.90); RED CELL DISTRIBUTION WIDTH 14.4 % (11.5-14.5); WHITE BLOOD COUNT 8.8 K/uL (4.8-10.8)
[2018-08-25 05:22] LABS: ALB/GLOB RATIO 1.5 (1.0-2.1); ALBUMIN 4.2 g/dL (3.5-5.0); ALT/SGPT 62 U/L (21-72); AST/SGOT 35 U/L (17-59); BLOOD UREA NITROGEN 16 mg/dl (9-20); CALCIUM 9.6 mg/dL (8.4-10.2); GFR NON-AFRICAN AMERICAN > 60; HDL CHOLESTEROL 47 MG/DL (30-70)
[2018-08-25 05:29] VITALS: O2SAT 99
[2018-08-25 05:32] LABS: LDL CHOLESTEROL 127 mg/dL (0-129)
[2018-08-25 07:56] VITALS: BP 123/80; RESP 18; TEMP 97.2
[2018-08-25] MEDS: Pantoprazole 20 mg EC Tab PO SCH (08:59)
[2018-08-25] MEDS ORDERED: Enoxaparin 40 mg Syringe SC SCH (09:00)
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
[2018-08-25 10:57] VITALS: PULSE 66
== END 2018-08-25 11:13 | disposition home or self-care (01) ==
LOC: H.ER 08:31 → H.ERHOLD 10:07 → H.TEL 13:53
PROVIDERS: ADMIT Student in an Organized Health Care Education/Training Program; ATTEND Student in an Organized Health Care Education/Training Program
DX: R07.9 Chest pain, unspecified (principal); K21.9 Gastro-esophageal reflux disease without esophagitis; I10 Essential (primary) hypertension; Z87.891 Personal history of nicotine dependence; Z23 Encounter for immunization
CPT/HCPCS: 36415; 71045; 80048; 80053; 80061; 83880; 84439; 84443; 84484; 85025; 85378; 85610; 85730; 90471; 90674; 90732; 93005; 99283; G0008; G0378; J1650

== ENCOUNTER 2018-09-03 11:18 | Emergency (ER) | payer OTHER ==
[2018-09-03 11:18] VITALS: BMI 27.1
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
[2018-09-03 14:08] LABS: BASO % 0.2 % (0.0-2.0); EOS # 0.1 K/uL (0.0-0.7); EOS % 1.1 % (0.0-4.0); HEMOGLOBIN 15.2 g/dL (12.0-18.0); LYMPH # 1.6 K/uL (1.0-4.3); LYMPH % 24.6 % (20.0-40.0); MEAN CELL VOLUME 89.8 fl (80.0-94.0); MEAN CORPUSCULAR HEMOGLOBIN 30.5 pg (27.0-31.0); MONO # 0.6 K/uL (0.0-0.8); MONO % 8.8 % (0.0-10.0); NEUT # 4.1 K/uL (1.8-7.0); NEUT % 65.3 % (50.0-75.0); NRBC % 0.2 % (0.0-0.0); RBC 4.97 Mil/uL (4.40-5.90); RED CELL DISTRIBUTION WIDTH 14.3 % (11.5-14.5); WHITE BLOOD COUNT 6.3 K/uL (4.8-10.8)
[2018-09-03 14:45] LABS: BLOOD UREA NITROGEN 14 mg/dl (9-20); CALCIUM 9.9 mg/dL (8.4-10.2); GFR NON-AFRICAN AMERICAN > 60
--- NOTE | 2018-09-03 15:15 | ED PDOC ---
- Laboratory Results Result Diagrams: 09/03/18 12:45 09/03/18 12:45 Lab Results: Troponin I < 0.0120 ng/mL (0.00-0.120) 09/03/18 12:45 - ECG ECG: Positive for: Interpreted By Me ECG Rhythm: Positive for: Normal QRS, Normal ST Segment, Sinus Rhythm O2 Sat by Pulse Oximetry: 99 (RA) Pulse Ox Interpretation: Normal - Radiology X-Ray: Interpreted by Me X-Ray Interpretation: No Acute Disease Medical Decision Making Medical Decision Making: Time: 1500 -- Patient endorsed to me by Dr. Pandya, pending ER workup, reassessment and final ER disposition. 1600 Labs unremarkable CXR unremarkable Repeat EKG unchanged, NSR, no st abnormalities, normal QRS Scribe Attestation: Documented by Cynthia Dye, acting as a scribe for Deya Sagastume MD. Provider Scribe Attestation: All medical record entries made by the Scribe were at my direction and personally dictated by me. I have reviewed the chart and agree that the record accurately reflects my personal performance of the history, physical exam, medical decision making, and the department course for this patient. I have also personally directed, reviewed, and agree with the discharge instructions and disposition. Disposition - Clinical Impression Clinical Impression: Atypical chest pain, Chest wall pain - POA Present On Arrival: None - Disposition Referrals: Brian Yanez MD [Family Provider] - 09/04/18 (FOLLOW UP WITH DR YANEZ TOMORROW FOR FURTHER EVALUATION) Disposition: Routine/Home Disposition Time: 15:51 Condition: STABLE Prescriptions: Ibuprofen [Motrin Tab] 600 mg PO Q8 PRN #30 tab PRN Reason: Pain, Moderate (4-7) Lidocaine 5% [Lidoderm] 1 ea TD DAILY PRN #10 patch PRN Reason: PAIN Instructions: Chest Pain That Is Not Caused by the Heart (DC)
[2018-09-03 16:08] VITALS: BP 132/70; PULSE 75; TEMP 97.6
[2018-09-03 16:09] VITALS: RESP 19
[2018-09-03 16:10] VITALS: O2SAT 99
--- NOTE | 2018-09-03 16:25 | RAD ---
Date of service: 09/03/2018 PROCEDURE: Radiographs of the Chest and Left Ribs. HISTORY: LEFT rib/chest pain COMPARISON: Chest radiograph dated 08/24/2018. TECHNIQUE: Frontal radiograph of the chest and multiple oblique radiographs of the left ribs were obtained. FINDINGS: LEFT RIBS: No fracture or focal lesion visualized. LUNGS: Clear. PLEURA: No pneumothorax or pleural fluid. CARDIOVASCULAR: Normal cardiac size. No pulmonary vascular congestion. No aortic atherosclerotic calcification present OTHER FINDINGS: None. IMPRESSION: Unremarkable radiographs of the chest and left ribs. No left rib fracture.
--- NOTE | 2018-09-04 07:54 | CARD ---
APPROVED REPORT Date of service: 09/03/2018 EKG Measurement Heart [id number] <Conclusion> Normal sinus rhythm Normal ECG
--- NOTE | 2018-09-04 07:56 | CARD ---
APPROVED REPORT Date of service: 09/03/2018 EKG Measurement Heart [id number] <Conclusion> Normal sinus rhythm Normal ECG
== END 2018-09-03 16:10 | disposition home or self-care (01) ==
LOC: H.ER 11:18
DX: R07.89 Other chest pain (principal); Z87.891 Personal history of nicotine dependence; K21.9 Gastro-esophageal reflux disease without esophagitis